=== PATIENT | female | born 1995 | race African-American/Black ===

== ENCOUNTER 2022-06-12 00:37 | Emergency (ER) | payer SELFPAY ==
[~2022-06-12] VITALS: Ht 170.2 cm; Wt 73.0 kg
[2022-06-12] MEDS ORDERED: METHYLPREDNISOLONE SOD SUCC 125 MG/2 ML VIAL IM STA (01:55)
[2022-06-12] MEDS ORDERED: KETOROLAC 60MG/2ML VIAL IM STA (01:55)
[2022-06-12] MEDS ORDERED: ONDANSETRON 4MG ODT PO STA (01:57)
[2022-06-12] MEDS ORDERED: ACETAMINOPHEN 325MG TABLET PO STA (01:57)
[2022-06-12] MEDS ORDERED: PENICILLIN G BENZATHINE 1,200,000 UNITS/2ML SYR IM ONE (02:00)
[2022-06-12] MEDS ORDERED: AMOX1TAB16 PO (05:40)
[2022-06-12] MEDS ORDERED: P20 PO (05:40)
[2022-06-12] MEDS ORDERED: IBUP-2029 PO (05:40)
[2022-06-12 06:00] VITALS: BP 130/95
== END 2022-06-12 06:15 | disposition home or self-care (01) ==
LOC: ER 00:37
DX: J03.90 Acute tonsillitis, unspecified (principal); R06.00 Dyspnea, unspecified
CPT/HCPCS: 81025; 87070; 87430; 96372; 99284; J0561; J1885; J2930; Q0162